=== PATIENT | female | born 2000 | race Caucasian/White ===

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

== ENCOUNTER 2023-12-06 16:52 | Emergency (ER) | payer SELFPAY ==
[2023-12-06 16:52] VITALS: BP 145/99; PULSE 90; RESP 16; TEMP 37.1; O2SAT 100; BMI 35.9
--- NOTE | 2023-12-06 17:59 | ED.RN ---
MOM STATED I AM TAKING HER TO [facility] . LWBS
--- OUTSIDE RECORDS SUMMARY | 2023-12-06 18:04 | XMS RPT_ITS | CCD ---
Author Organization [facility] Care Team Providers Care Radio Talk Show Host Name Role Phone Reginaldo Rogers Unavailable Unavailable Reginaldo Rogers Unavailable Unavailable MikalMarielClare Alexus Unavailable Unavailable Allergies Allergy Classification Reported Allergen(s) Allergy Type Date of Onset Reaction(s) Facility (1 source) No Known Medication Allergies; Translations: [No Known Medication Allergies] Propensity to adverse reactions to drug (disorder) [facility] Repository Results Test Name Value Interpretation Reference Range Facil ity Progress Noteon 03-09-2019 Service Technician Authentication Interface Message Text Patient ID: Adenike Coburn is a 18 y.o. female. Her chief complaint(s) include: 18 YEAR WELL CHILD Assessment 1. Encounter for routine child health examination without abnormal findings 2. Exercise counseling 3. Encounter for dietary counseling and surveillance 4. Need for vaccination Plan Adenike was seen today for 18 year well child. Diagnoses and all orders for this visit: Encounter for routine child health examination without abnormal findings - Behavioral/Emotional Assessment w Score - PHQ-9 Exercise counseling Encounter for dietary counseling and surveillance Need for vaccination - Hepatitis A Ped/Adol <= 18y - Meningococcal ACWY (MENACTRA) - HPV (Gardasil 9) - Meningococcal B (BEXSERO) Return in about 1 year (around 03/09/2020) for well check. Subjective She is accompanied by her father. 18 YEAR WELL CHILD Home: Adenike eats meals with family, has an adult to turn to for help and is permitted and able to make independent decisions. Adenike has no home risk identified. Education: Adenike is doing well. Eating: Adenike eats regular meals including fruits and vegetables, eats breakfast, limits fast food, drinks non-sweetened liquids and has a calcium source. Adenike does not have concerns about body appearance. 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 Drugs: Adenike does not use tobacco, does not use drugs, does not use alcohol and does not vape. Safety: Adenike has a violence free home and has peer relationships free from violence. Sex: The patient has never had a sexual partner. Suicidality: Adenike has ways to cope with stress. Menstruation Menstruation: regular periods Output Urine and Stool Pattern: Urine and Stool Pattern: Normal stool pattern, normal urine pattern. Sleep Sleeping Difficulty: no difficulty sleeping Teen Anticipatory Guidance The following anticipatory guidance was reviewed during the visit: Nutrition: limit junk food/fast food and soft drinks. Safety: use safety helmet/gear with activities, date violence and don't carry or use weapons. Social: avoid or limit screen time, explore heritage and cultural diversity, parental limits and consequences for unacceptable behavior and bullying. Health: age appropriate dental care, age appropriate sleep habits, elevated noise and hearing, talk with trusted adult if feeling sad or nervous, learn to manage time and activities, be responsible for attendance/ homework/ course selection, learn about self and strengths, recognize and deal with stress and limit sun exposure/use sunscreen. Screenings Previous Vaccine Reactions: No. Life events information was reviewed-no referral needed Tuberculosis Concerns: Negative Tuberculosis Screen Concerns: no TB Risk Factors Hearing Vision Concerns: Patient wears glasses or contact lenses. The caregiver has no concerns about the patient's hearing. The caregiver has no concerns about the patient's vision. Hyperlipidemia Concerns: Positive Hyperlipidemia Screen Concerns: Hyperlipidemia Risk Factors and BMI >95% Primary Care Review of Systems Objective Vital Signs 03/09/19 0737 BP: 121/60 Pulse: 94 Weight: 80.4 kg Height: 165.5 cm Body mass index is 29.35 kg/m . Physical Exam Nursing note reviewed. Constitutional: She appears well. She is active. No distress. HENT: Head: Atraumatic. Right Ear: Tympanic membrane and external ear normal. Left Ear: Tympanic membrane and external ear normal. Nose: Nose normal. Mouth/Throat: Mucous membranes are moist. Dentition is normal. Oropharynx is clear. Eyes: Conjunctivae and EOM are normal. No strabismus. Pupils are equal, round, and reactive to light. Neck: Normal range of motion. Neck supple. Thyroid normal. No neck adenopathy. Cardiovascular: Normal rate, regular rhythm, S1 normal and S2 normal. Pulses are palpable. Heart murmur not heard. Pulmonary/Chest: Breath sounds normal. No respiratory distress. Exhibits no deformity. Abdominal: Soft. Bowel sounds are normal. She exhibits no distension and no mass. There is no hepatosplenomegaly. There is no tenderness. Musculoskeletal: Normal range of motion. Back: She exhibits no scoliosis. Neurological: She is alert. She has normal strength. She exhibits normal muscle tone. Gait normal. Skin: No rash noted. There is no pallor. Skin is warm. Vitals reviewed: Blood pressure 121/60, pulse 94, height 165.5 cm, weight 80.4 kg, last menstrual period 02/19/2019. Normal [facility] Progress Noteon 06-27-2018 Service Technician Authentication Interface Message Text Patient ID: Adenike Coburn is a 17 y.o. female. Her chief complaint(s) include: Cold Symptoms (cough, ST) Assessment 1. Acute pharyngitis, unspecified etiology Camila Jeong was seen today for cold symptoms. Diagnoses and all orders for this visit: Acute pharyngitis, unspecified etiology - POCT rapid strep A antigen - Strep culture - amoxicillin-clavulan ate (AUGMENTIN) 875-125 MG tablet; Take 1 Tab (875 mg) by mouth 2 times daily for 10 days No follow-ups on file. Subjective She is accompanied by her friend of family. Cold Symptoms The onset has been acute. The duration has been 5 days. The pattern is persistent. The course is unchanging. The patient's symptoms have included fever, difficulty sleeping, congestion, sore throat, cough, nausea and vomiting. The patient's symptoms have included no difficulty breathing, no diarrhea and no rash. The patient has been exposed to sick contacts at school Review of Systems Respiratory: Positive for chest congestion and cough. HENT: Positive for nasal congestion and postnasal drip. Objective Vital Signs 06/27/18 1354 Temp: 37 C (98.6 F) TempSrc: Temporal Weight: 71.4 kg There is no height or weight on file to calculate BMI. Physical Exam Constitutional: She is active. She appears ill. No distress. HENT: Head: Atraumatic. Right Ear: Tympanic membrane normal. Left Ear: Tympanic membrane normal. Nose: Nasal discharge present. Mouth/Throat: Mucous membranes are moist. Pharynx erythema present. Eyes: Conjunctivae are normal. Neck: Neck adenopathy present. Cardiovascular: Normal rate and regular rhythm. Heart murmur not heard. Pulmonary/Chest: Breath sounds normal. There is normal air entry. Air movement is not decreased. She has no wheezes. Abdominal: Soft. Bowel sounds are normal. Neurological: She is alert. Skin: Capillary refill takes less than 3 seconds. Skin is warm. Normal [facility] Strep Cultureon 06-27-2018 Strep Culture Is this specimen being sent to an external lab?->No Strep Culture: No Beta hemolytic Streptococci isolated. Source: [facility]W Collected: 06/27/18 14:22 Site: Throat swab Received : 06/27/18 19:51 Strep Culture FINAL 06/29/18 10:05 No Beta hemolytic Streptococci isolated. Normal [facility] Comment on above: Performed By: #### S TREP #### [place] [id number] Encounters Encounter Date Encounter Type Care Provider Facility Start: 08-18-2017 End: 08-18-2017 Emergency department patient visit [facility] Facility:[facility] Payers Date Payer Category Payer Unknown Summary Purpose Family History No Family History Records FoundNo Family History Records Found Advance Directives No Advanced Directives Records FoundNo Advanced Directives Records Found Additional Source Comments INFORMATION SOURCE (unrecogn ized section and content) DATE CREATED AUTHOR 08/18/2017 [facility] DATE CREATED AUTHOR AUTHOR'S ORGANIZ ATION 03/09/2019 [facility] FOR RECORDS PERTAINING TO PATIENTS WHO ARE OR HAVE BEEN ENROLLED IN A CHEMICAL DEPENDENCY/SUBSTANCEABUSE PROGRAM, SOME INFORMATION MAY BE OMITTED. This clinical summary was aggregated from multiple sources. Caution should be exercised in using it in the provision of clinical care. This summary normalizes information from multiple sources, and as a consequence, information in this document may materially change the coding, format and clinical context of patient data. In addition, data may be omitted in some cases. CLINICAL DECISIONS SHOULD BE BASED ON THE PRIMARY CLINICAL RECORDS. [facility] [employer] [facility]. provides no warranty or guarantee of the accuracy or completeness of information in this document.
== END 2023-12-06 17:58 | disposition left against medical advice (07) ==
LOC: ED 18:01
DX: Z53.21 Procedure and treatment not carried out due to patient leaving prior to being seen by health care provider (principal)

== ENCOUNTER 2023-12-20 06:40 | Emergency (ER) | payer MEDICAID, SELFPAY ==
[2023-12-20 06:40] VITALS: BP 141/110; PULSE 90; RESP 17; TEMP 36.2; O2SAT 100; BMI 34.3
[2023-12-20 06:44] VITALS: BP 141/110; PULSE 90; RESP 18; TEMP 36.2; O2SAT 100
--- NOTE | 2023-12-20 07:17 | EX.ED.VIS.UR ---
HPI HPI - URI History of Present Illness Chief Complaint: Ear Problem Informant: patient and parent Onset/Context/Timing Onset: Days Context: Gradual Onset Timing: Continuous Current Severity: Moderate Maximum Severity: Moderate Narrative Narrative: 23-year-old female left earache for about 3 days. Saw in urgent care yesterday was started on eardrops 1 drop 3 times a day. That is now worse. Prior similar symptoms: No Recent Illness/Hospitalization: No ROS ROS ED ROS Narrative Nausea and vomiting several days ago resolved. Left earache. Constitutional Constitutional ED: Denies chills or fever(s) Eyes Eyes: Denies blurry vision ENT ENT ED: Reports ear pain Cardiovascular Cardiovascular: Denies chest pain Respiratory/Chest Respiratory/Chest: Denies cough Gastrointestinal Gastrointestinal: Denies abdominal pain Genitourinary Genitourinary ED: Denies dysuria Musculoskeletal Musculoskeletal: Denies arthralgias Integumentary Denies abscess Neurologic Neurologic: Denies headache(s) Psychiatric Psychiatric: Denies anxiety Endocrine Endocrinology: Denies cold intolerance Hematologic/Lymphatic Hematologic/Lymphatic: Denies easy bleeding Allergic/Immunologic Allergic/Immunologic ED: Denies mouth swelling PFSH PFSH no medical history Home Medications ?Medication ?Instructions ?Recorded ?Last Taken ?Type [id number] 3.5 4 drp otic (ear) Q8H 12/20/23 Unknown History mg/mL-10,000 unit/mL-1 % ear solution Allergy/AdvReac Type Severity Reaction Status Date / Time No Known Allergies Allergy Verified 12/20/23 06:41 Social History Smoking Status: Never smoker EXAM Physical Exam Narrative Exam Narrative: Well-appearing 23-year-old female. Vital signs are stable afebrile. H EENT exam pupils round react to light. Right TM minimally red. Normal. Left ear the medial portion of the outer ear is minimally swollen. The ear canal is mildly swollen. But not closed. She does not need an ear wick. The eardrum is mildly red no perforation. No blood. Posterior pharynx normal. Neck nontender no lymphadenopathy. Lungs are clear to auscultation bilaterally. Heart is regular rhythm no murmur. Abdomen soft nontender. Moving all 4 extremities. Nontender no edema. She is awake and alert. Const Vital Signs: 12/20/23 06:40 11/05/24 06:44 Temperature 97.1 F L 97.1 F L Temperature Source Temporal Temporal Pulse Rate 90 90 Respiratory Rate 17 18 Blood Pressure 141/110 H 141/110 H Blood Pressure Mean 120 120 Pulse Ox 100 100 Oxygen Delivery Method Room Air Room Air Positive well nourished and well developed; Negative for cachectic or contractures General Appearance ED: well developed and NAD; Negative for cachectic, contractures, cyanotic, diaphoretic or pallor Nutritional Appearance: Negative for cachectic HEENT Reports moist mucous membranes HEENT Narrative: Left TM erythematous. Left canal mildly swollen and red consistent with otitis externa. normocephalic and atraumatic; Negative for scalp tenderness Teeth and Gingiva: Negative for caries Throat: posterior oropharynx normal Eyes PERRL and EOMs intact bilaterally Neck no lymphadenopathy, supple, no meningeal signs and no JVD General: Negative for anterior neck swelling or lymphadenopathy Resp normal respiratory effort and clear to auscultation bilaterally Auscultation: Negative for rales, rhonchi or wheezes Cardio S1 normal heart sound, S2 normal heart sound and no murmurs Rate: regular rate Rhythm: regular rhythm GI non-tender, non-distended and no masses Inspection: Negative for abdominal distention Auscultation: normoactive bowel sounds Palpation: soft; Negative for tender or guarding Back/Spine no CVA tenderness and normal ROM General Back: Negative for CVA tenderness Cervical Spine: Negative for cervical spine tenderness Thoracic Spine / Upper Back: Negative for thoracic spinal tenderness Lumbar Spine / Lower Back: Negative for lumbar spinal tenderness Sacrum: Negative for tenderness Extremity normal to inspection and full ROM General Extremety ED: Negative for cyanosis, tenderness or other findings General Extremity: Negative for cyanosis or other findings Neuro oriented x3, CN's II-XII intact bilaterally and no sensory deficits noted Sensorium / Orientation: alert, oriented to person, oriented to place and oriented to time; Negative for orientation impaired, lethargic or stuporous Motor Exam: strength 5/5 throughout Psych mental status grossly normal Appearance: Negative for other Attitude: No agitated Mood & Affect: Negative for depressed, anxious or tearful Skin General Skin Exam: Negative for jaundice or pallor Lesions: no lesions Rashes: no rashes MDM MDM MDM Narrative Medical decision making narrative: 23-year-old female left otitis externa and media. She is already on eardrops. She will continue drops. She does not need a wick at this time. She also placed on amoxicillin 3 times daily. Discharge Plan Triage Chief Complaint: Ear Problem ED Provider: Rakesh Taylor Dx/Rx/DC Orders Clinical Impression: Otitis externa, Otitis media Instructions: ED Otitis Media Adult, ED External Ear Infection (Adult) Prescriptions: No Action qwyvzssm-qqihcfstg-WO 3.5-10,000-1 mg/mL-unit/mL-% solution 4 drp otic (ear) Q8H Primary Care Provider: Care Physician,No Primary Referrals: Madan De León MD [Med Staff - Online Content Developer] - 3-5 Days if not improving Care Physician,No Primary [Primary Care Provider] - Activity Restrictions/Additional Instructions: Motrin and Tylenol for pain. The antibiotic amoxicillin 3 times a day till gone The eardrops 2 to 3 drops 3 times a day till gone. Return if getting worse or not better. Print Language: Frisian Disposition Disposition: Home, Self Care
[2023-12-20 07:21] VITALS: BP 129/77; PULSE 77; RESP 19; TEMP 36.8; O2SAT 98
[2023-12-20] MEDS: AMOXICILLIN 500 MG CAPSULE PO (07:25)
== END 2023-12-20 07:31 | disposition home or self-care (01) ==
PROVIDERS: Emergency Provider Emergency Medicine; Visit Provider Emergency Medicine
DX: H60.92 Unspecified otitis externa, left ear (principal); H66.92 Otitis media, unspecified, left ear
CPT/HCPCS: 99282